=== PATIENT | female | born 1985 | race Caucasian/White ===

== ENCOUNTER 2018-06-11 18:18 | Emergency (ER) | payer OTHER, MEDICAID, SELFPAY ==
--- NOTE | 2018-06-11 19:10 | ED.URI ---
HPI - URI/Sore Throat <SHELBY Yusuf - Last Filed: 06/11/18 22:49> General Chief Complaint: Upper Respiratory Symptoms Stated Complaint: upper respritory congestion Time Seen by Provider: 06/11/18 18:47 Source: patient Mode of arrival: ambulatory Limitations: no limitations History of Present Illness HPI Narrative: 32-year-old healthy female that is a everyday smoker here for complaint of having cough fever and cold-like symptoms over the past several days. She has for reports having chills. She has nasal congestion as well. She has had a cough that is been nonproductive. She is tolerating p.o. intake well. No nausea or vomiting. She denies being around other contacts with similar symptoms. No other concerns or complaints at this timeframe. MD Complaint: fever, cough and nasal congestion Related Data Previous Rx's Medication Instructions Recorded albuterol sulfate [Ventolin HFA] 0 puff INH Q4HP PRN #1 ea 07/02/16 amoxicillin-pot clavulanate 1 tab PO BID #14 tab 07/02/16 [Augmentin] Allergies Allergy/AdvReac Type Severity Reaction Status Date / Time No Known Drug Allergies Allergy Verified 06/11/18 19:15 Review of Systems <SHELBY Yusuf - Last Filed: 06/11/18 22:49> Constitutional Reports chills, Reports fever(s), Denies lethargy, Reports malaise and Denies weakness Eyes Denies change in vision, Denies eye discharge, Denies irritation and Denies loss of vision ENT Ears, Nose, Mouth, and Throat: Reports nasal congestion and Denies throat swelling Cardiovascular Denies chest pain, Denies irregular heart rhythm, Denies lightheadedness, Denies palpitations and Denies orthopnea Respiratory Reports cough and Denies wheezing Gastrointestinal Gastrointestinal: Denies abdominal pain, Denies change in bowel habits, Denies diarrhea, Denies nausea and Denies vomiting Genitourinary Denies hematuria, Denies flank pain, Denies urinary incontinence and Denies urinary urgency Musculoskeletal Denies back pain, Denies muscle weakness, Denies numbness and Denies tingling Integumentary/Breasts Denies pruritus, Denies erythema, Denies rash and Denies wounds Neurologic Denies confusion, Denies loss of vision, Denies numbness, Denies tingling and Denies weakness Psychiatric Denies anxiety, Denies confusion, Denies depression, Denies homicidal ideation and Denies suicidal ideation Endocrine Denies palpitations Hematologic/Lymphatic Denies easy bruising Allergic/Immunologic Denies urticaria, Denies throat swelling and Denies wheezing PFSH <SHELBY Yusuf - Last Filed: 06/11/18 22:49> Social History Smoking Status: Current every day smoker Social History Smoking Status: Current every day smoker Exam <SHELBY Yusuf - Last Filed: 06/11/18 22:49> Initial Vital Signs Initial Vital Signs: Vital Signs Temperature 99.1 F 06/11/18 19:16 Pulse Rate 83 06/11/18 19:16 Respiratory Rate 18 06/11/18 19:16 Blood Pressure 118/80 06/11/18 19:16 Pulse Oximetry 100 06/11/18 19:16 Const General: cooperative and well developed Nutritional Appearance: well nourished Orientation: alert, awake, oriented x3 and not confused HENMT Mouth: oral mucosae normal and moist mucous membranes Throat: posterior oropharynx normal Eyes Conjunctivae: conjunctivae normal Sclera: sclerae normal Pupils: PERRL EOM: EOM intact bilaterally Neck Neck: normal visual inspection, trachea midline, No lymphadenopathy, No midline deformity and No JVD Lymphatic: No lymphedema Chest Chest: normal inspection of the chest Resp Effort & Inspection: normal respiratory effort, able to speak in complete sentences, no respiratory distress and no use of accessory muscles Auscultation: clear to auscultation bilaterally, no rales, no rhonchi and no wheezes Cardio Rate: regular rate Rhythm: regular rhythm Heart Sounds: no click, no gallops, no murmurs and no rubs Skin General: no rashes or lesions noted, No jaundice and No petechiae Neuro General: alert, oriented x3, gait normal and no focal motor deficits Speech: speech normal <Sharyn Henley DO - Last Filed: 06/12/18 02:50> Initial Vital Signs Initial Vital Signs: Vital Signs Temperature 99.1 F 06/11/18 19:16 Pulse Rate 83 06/11/18 19:16 Respiratory Rate 18 06/11/18 19:16 Blood Pressure 118/80 06/11/18 19:16 Pulse Oximetry 100 06/11/18 19:16 Course <SHELBY Yusuf - Last Filed: 06/11/18 22:49> Orders Ordered: ED Orders 06/11/18 19:53 Influenza A and B by PCR Rapid Stat Vital Signs - 8 hr 06/11/18 19:16 06/11/18 20:29 Temperature 99.1 F 98.9 F Pulse Rate 83 91 H Respiratory Rate 18 18 Blood Pressure 118/80 Blood Pressure [Left Arm] 111/77 Pulse Oximetry 100 100 <Sharyn Henley DO - Last Filed: 06/12/18 02:50> Orders Ordered: ED Orders 06/11/18 19:53 Influenza A and B by PCR Rapid Stat Vital Signs - 8 hr 06/11/18 19:16 06/11/18 20:29 Temperature 99.1 F 98.9 F Pulse Rate 83 91 H Respiratory Rate 18 18 Blood Pressure 118/80 Blood Pressure [Left Arm] 111/77 Pulse Oximetry 100 100 MDM - URI/Sore Throat <SHELBY Yusuf - Last Filed: 06/11/18 22:49> Lab Data Lab Results 06/11/18 Range/Units 19:53 Influenza A & B (PCR) Positive, type a A (Negative) MDM Narrative Medical decision making narrative: influenza swab was obtained was positive. Signs and symptoms due to influenza. Plenty of fluids and rest. [id number] Tylenol or Motrin as needed for discomfort and fever. Follow up with primary care provider. Return emergency room for any worsening symptoms. <DO Kellie Pendleton Last Filed: 06/12/18 02:50> Lab Data Lab Results 06/11/18 Range/Units 19:53 Influenza A & B (PCR) Positive, type a A (Negative) Discharge Plan Departure Patient Disposition: Home Clinical Impression: Influenza Discharge Date/Time: 06/11/18 20:49 Interventions: ED Discharge Assessment Last Done: 06/11/18 20:49 Instructions: DI for Influenza -- Adult Activity Restrictions/Additional Instructions: Influenza swab was obtained was positive. Symptoms are due to the influenza. Supportive care with plenty of rest and plenty of fluids. [id number] Tylenol or Motrin as needed for any discomfort or fever. Saline irrigation and nasal passages and hot showers to help with any nasal congestion. Follow up with primary care provider. Return emergency room for any worsening symptoms. Prescriptions: No Action albuterol sulfate [Ventolin HFA] 90 MCG/PUFF HFA aerosol inhaler INH Q4HP PRNQty: 1 RF: 0 amoxicillin-pot clavulanate [Augmentin] 875 MG/125 MG tablet 1 tab PO BID Qty: 14 RF: 0 Referrals: [facility] [Provider Group] Stand Alone Forms: Work Release Note, Work/School Release <Sharyn Henley, - Last Filed: 06/12/18 02:50> Cosign ED Attending Floraature Attestation: I was immediately available in the department for consultation. Documentation has been reviewed. I agree with assessment and plan.
[2018-06-11 19:16] VITALS: BP 118/80; PULSE 83; RESP 18; TEMP 37.3; O2SAT 100; BMI 23.1
[2018-06-11 20:29] VITALS: BP 111/77; PULSE 91; RESP 18; TEMP 37.2; O2SAT 100
== END 2018-06-11 20:49 | disposition home or self-care (01) ==
PROVIDERS: Emergency Provider Nurse Practitioner Family
DX: J11.1 Influenza due to unidentified influenza virus with other respiratory manifestations (principal)
CPT/HCPCS: 87400; 99282